=== PATIENT | male | born 1955 | race Caucasian/White ===

== ENCOUNTER 2016-11-10 08:21 | Emergency (ER) | payer BC ==
[2016-11-10 09:14] LABS: Hematocrit 38 % (42-52); Mean Corpuscular HGB Conc 34 g/dl (31-36); Mean Corpuscular Hemoglobin 30 pg (27-31); Mean Corpuscular Volume 88 fL (80-94); Mean Platelet Volume 9 um3 (7.4-10.4); Red Blood Count 4.33 10^6/ul (4.0-5.4); Red Cell Distribution Width 13 % (10.5-15); White Blood Count 5.5 10^3/ul (3.5-10.8)
[2016-11-10 09:30] LABS: Albumin 3.9 g/dL (3.2-5.2); BUN/Creatinine Ratio 18.5 (8-20); Calcium 9.1 mg/dL (8.6-10.3); EGFR African American 89.4 (>60); EGFR Non-African American 69.5 (>60); Globulin 2.9 g/dL (2-4); Magnesium 1.9 mg/dL (1.9-2.7); Potassium 3.8 mmol/L (3.5-5.0); Total Bilirubin 0.6 mg/dL (0.2-1.0); Total Protein 6.8 g/dL (6.4-8.9)
[2016-11-10 09:46] LABS: TSH (Thyroid Stimulating Horm) 6.34 mcIU/mL (0.34-5.60)
[2016-11-10] MEDS ORDERED: Iodixanol* (CONTRAST) 320 MG/ML 100 ML SDV IV ONE (10:53)
[2016-11-10] MEDS ORDERED: NS 0.9% 1000 ML* 1,000 ML IV ONE (12:29)
--- NOTE | 2016-11-10 13:11 | RAD ---
Indication: Ataxia, disequilibrium. CT of the brain was performed without IV contrast. The structures are midline. No midline shift is noted. The extraction spaces are unremarkable. There is no evidence of intracranial mass or hemorrhage. No other high or low density lesions are identified. Mastoid air cells and paranasal sinuses are otherwise unremarkable. There are no prior studies available for comparison. IMPRESSION: No intracranial mass or hemorrhage is noted.
--- NOTE | 2016-11-10 13:17 | RAD ---
Indication: Ataxia, disequilibrium. Contrast: Administered 79.9 ml of VISAPAQUE 320 mgi/ml CTA of the neck and head was performed after IV contrast administration. Coronal and sagittal reconstructed images were obtained. The origins of the great vessels demonstrates atherosclerosis at the origin of the left common carotid artery and the left subclavian artery. The right common carotid artery demonstrates calcific plaque in the mid right common carotid artery. Approximately 50% stenosis is noted in the mid right common carotid artery. Calcific plaque is also noted at the origin of the right internal carotid artery with suggestion of approximately 50% stenosis of the right internal carotid artery. The left common carotid artery demonstrates no evidence of calcific plaque. At the left carotid bifurcation there is plaque noted peripherally with less than 50% stenosis of left internal carotid artery. The cervical portion of the internal carotid arteries are grossly unremarkable. No evidence of carotid artery dissection is noted. The intracranial carotid arteries demonstrate atherosclerosis of the intracavernous portion of both internal carotid arteries. CTA of the head demonstrates anterior and middle cerebral arteries to be unremarkable with no branch occlusion. No aneurysmal dilatation is noted. The right vertebral artery demonstrates atherosclerosis. The basilar and posterior cerebral arteries are unremarkable with no evidence of branch occlusion or aneurysmal dilatation. IMPRESSION: Calcification and plaque is noted at the origin of the left common carotid artery. Approximately 50% calcific plaque and stenosis is noted in the mid right common carotid artery. Approximately 50% or greater stenosis is noted at the origin of the right internal carotid artery. Less than 50% stenosis of the origin of the left internal carotid artery noted. Atherosclerosis of the intracavernous portion of the internal carotid arteries is noted bilaterally.
--- NOTE | 2016-11-10 13:36 | RAD ---
Indication: Back pain. 3 views of lumbar spine demonstrates retrolisthesis of L4 on 5. The vertebral bodies otherwise appear normal in height. Disc spaces all well-preserved. IMPRESSION: There may be some minimal degenerative disc disease at L4-L5.
[2016-11-10 15:47] VITALS: BP 135/69
--- NOTE | 2016-11-10 20:41 | CONS ---
NEUROLOGY CONSULTATION: DATE OF CONSULT: 11/10/16 LOCATION: He is in the emergency room. REFERRING PHYSICIAN: Dr. Carroll. PRIMARY CARE PROVIDER: Jovan Patel MD CHIEF COMPLAINT: Dizziness. HISTORY OF PRESENT ILLNESS: Douglas Corado is a 61-year-old man who was in his usual state of health yesterday, when he was sitting on the edge of the bed at about 4 o'clock and sat improperly such that he was pressing on a sore spot and had quite a bit of pain near the sacrum. He felt "woozy" and unsteady and had to sit back down again. He had to lie back down at least for a little while. He got up to go to the bathroom and he felt "woozy" and somewhat unsteady. There was no sweating, but he did feel a bit nauseous, which he had been feeling earlier as well. No change in vision and he did not fall or lose awareness. He made it to the bathroom and sat there and felt a little bit better. He headed back to his bedroom and again felt somewhat dizzy and unsteady and lied down. After about 2 hours of lying down and sleepy, he got up at about 6 p.m. He again felt somewhat woozy and lightheaded. He stayed home that evening and he spoke to a friend who is a wheel buffer out of state and suggested that he might be dehydrated. He decided to stay home and he just tried to rest and eat and drink. He got up this morning and still did not feel quite right and so took the bus to the emergency room. While walking to the bus stop, he felt unsteady and woozy. There has not been any problems with double vision, slurred speech, numbness of the face or limbs, or incoordination of the limbs. There was no diaphoresis. He had diarrhea yesterday morning and last evening. He took his medications like he usually does. He is a diabetic and he lost his blood glucose monitor, so he has not checked it in a couple of weeks. He feels that he drinks fluids reasonably well. He had some M and M's after dinner last night. PAST MEDICAL HISTORY: Notable for insulin requiring diabetes for over 2 decades, he has dyslipidemia, peripheral neuropathy. He has a history of peripheral vascular disease with amputation of the right foot and a toe on the left foot. MEDICATIONS: At home consist of: 1. Insulin. 2. Actos. 3. Gabapentin 300 mg p.o. q.h.s. 4. Citalopram 30 mg p.o. q.a.m. 5. Precose 50 mg p.o. b.i.d. 6. Metformin 500 mg p.o. b.i.d. 7. Glyburide 10 mg p.o. b.i.d. 8. Simvastatin 10 mg p.o. q.p.m. ALLERGIES: He is allergic to SHELLFISH. REVIEW OF SYSTEMS: Notable for a fall on some ice, landing on his tailbone about a week prior to presentation. He did not lose consciousness. He has had pain in the small of his back and tailbone ever since. No recent change in weight. He had diarrhea yesterday. No fevers or sweats. He has had some episodes of shortness of breath yesterday when he felt lightheaded. No chest pain. No history of cardiac disease. No change in weight. He does not monitor his blood glucose and he is not sure what his A1c is. His primary care physician is Dr. Jovan Patel, who is retired and he has not seen his new primary care physician yet. He says he takes his medications very regularly. No problems with headaches. His sleep is erratic and he was up late the night before admission. He does work locally. PHYSICAL EXAM: He is overweight. Temperature 98.5 temporally, blood pressure supine is 130/90 going to 120/80 standing, checked by myself at the bedside with a manual cuff. Heart rate remains fairly regular in the 70s with occasional ventricular ectopic beats. Respiratory rate is 20, oxygen saturation is 94% on room air. Skin is warm and dry. Neck is supple. Oral mucosa is moist and atraumatic. There is some tenderness to palpation in the left paravertebral musculature, but no obvious sores or open skin. Neurologically, pupils react equally from 4.5 to 2.5 mm. Eye movements are normal. There is no nystagmus. Visual mcmahan are full to confrontation. Funduscopic exam is unremarkable bilaterally. There is no ptosis. Facial musculature is intact and symmetric bilaterally. Facial sensation to light touch and pin is intact and symmetric. Palate and tongue appear normal, tongue protrudes in the midline and palate rises symmetrically. There is no dysarthria. Hearing is intact. Motor exam reveals normal muscle tone and strength proximally and distally with absent right foot below the ankle. He is missing one toe in the left foot. There is atrophy of foot intrinsics and a little bit in hand intrinsics bilaterally. He has good strength proximally in the upper and lower extremities and no pronator drift. Finger to nose maneuver is normal. There is no action tremor or rest tremor. Past pointing maneuver is negative on the right. Reflexes are hypoactive, but present. Knee reflexes are trace. Standing, he may feel somewhat woozy and to the back. His blood pressure drops as described above, but not precipitously. He is alert and oriented and a good detailed historian. Memory is intact and language is fluent. He has good attention, concentration, adequate fund of knowledge. DIAGNOSTIC STUDIES/LAB DATA: Includes a CBC which is notable for a hemoglobin of 13 and is otherwise unremarkable. Chemistry is notable for glucose of 274 and a sodium of 132 and otherwise unremarkable. He has not had a urinalysis. EKG is reviewed and reveals sinus rhythm with a left axis deviation. He has a CT of the brain ordered and pending. IMPRESSION: He is probably orthostatic. He has significant vascular risk factors, but he really does not describe anything that clearly is suggestive of a vertebrobasilar insufficiency. He does have a little drop in blood pressure upon standing and feels woozy and his symptoms are orthostatic. I would recommend he be given some fluids. A CT of the brain is pending and unless it shows something unusual, I think I would treat him for his orthostatic hypotension. Dr. Carroll has also ordered a CT angiogram of the brain and we will see what that shows. If he has severe vertebrobasilar stenosis, then that will need to be addressed, but at this point, I would favor dehydration and orthostatic hypotension as the likely cause of his symptoms. [id number]/[facility] #: [id number] LAURA
--- NOTE | 2016-11-11 08:05 | ED ---
Sohail Lambert Adam, scribed for Tj Carroll MD on 11/10/16 at 0844 . Dizziness - HPI Summary HPI Summary: 61 year old male arrived to [facility] complaining of dizziness, lightheadedness, and difficulty walking since 16:00 yesterday. His symptoms have been constant over the past 10 days, but wax and wane in their severity. He describes his sensation as "hazy, swaying side to side." His symptoms were exacerbated with sudden movement after sitting down, and alleviated while holding onto a door handle/railing. He is also experiencing numbness in both feet, which is no different from baseline. He has a PMHx of IDDM, HLD. - History Of Current Complaint Chief Complaint: EDDizziness Stated Complaint: DIZZY/DIFF WALKING Time Seen by Provider: 11/10/16 08:41 Hx Obtained From: Patient Onset/Duration: Resolved - spontaneously Timing: Minutes Severity Initially: Moderate Severity Currently: Moderate Character: Lightheaded, Dizzy Aggravating Factor(s): Exertion Alleviating Factor(s): Rest Associated Signs And Symptoms: Positive: Unsteady Gait, Inability to Walk - swaying side to side - Risk Factors Cardiac Risk Factors: Diabetes, Elevated Lipids - Allergies/Home Medications Allergies/Adverse Reactions: Allergies Allergy/AdvReac Type Severity Reaction Status Date / Time Shellfish Allergy Allergy FACIAL Verified 12/20/14 13:43 EDEMA PMH/Surg Hx/FS Hx/Imm Hx Endocrine/Hematology History: Reports: Hx Diabetes Denies: Hx Anticoagulant Therapy, Hx Thyroid Disease Cardiovascular History: Denies: Hx Congestive Heart Failure, Hx Hypertension, Hx Pacemaker/ICD, Other Cardiovascular Problems/Disorders Respiratory History: Reports: Hx Seasonal Allergies, Hx Sleep Apnea Denies: Hx Chronic Obstructive Pulmonary Disease (COPD) GI History: Denies: Other GI Disorders History: Denies: Hx Dialysis, Hx Renal Disease Musculoskeletal History: Reports: Hx Arthritis - L FINGER, Other Musculoskeletal History - OSTEOMYELITIS RIGHT ANKLE AND FOOT Sensory History: Reports: Hx Cataracts - REBA, Hx Contacts or Glasses - GLASSES FOR DISTANCE Denies: Hx Hearing Aid Opthamlomology History: Reports: Hx Cataracts - REBA, Hx Contacts or Glasses - GLASSES FOR DISTANCE Neurological History: Denies: Hx Seizures, Other Neuro Impairments/Disorders Psychiatric History: Reports: Hx Anxiety - R/T SURGERY, Hx Depression Denies: Hx Panic Disorder, Hx Substance Abuse - Surgical History Surgery Procedure, Year, and Place: L knee surgery, tonsillectomy. LT 2nd toe surgery 2012 Hx Anesthesia Reactions: No Infectious Disease History: No Infectious Disease History: Denies: Traveled Outside the [place] in Last 30 Days - Family History Known Family History: Positive: Other - negative for malignant hypethermia, no adverse reaction to anesthesia - Social History Alcohol Use: None Substance Use Type: Reports: None Smoking Status (MU): Never Smoked Tobacco Have You Smoked in the Last Year: No Review of Systems Negative: Fever, Chills Negative: Erythema Negative: Sore Throat Negative: Chest Pain Negative: Shortness Of Breath, Cough Negative: Vomiting, Diarrhea, Nausea Negative: dysuria, hematuria Negative: Myalgia, Edema Negative: Rash Neurological: Other - "dizziness" Positive: Weakness All Other Systems Reviewed And Are Negative: Yes Physical Exam - Summary Physical Exam Summary: Constitutional: Well-developed, Well-nourished, Alert. (-) Distressed Skin: Warm, Dry HENT: Eyes: Conjunctiva normal Neck: Musculoskeletal ROM normal neck. (-) JVD, (-) Stridor, (-) Tracheal deviation Cardio: Rhythm regular, rate normal, Heart sounds normal; Intact distal pulses; The pedal pulses are 2+ and symmetric. Radial pulses are 2+ and symmetric. (-) Murmur Pulmonary/Chest wall: Effort normal. (-) Respiratory distress, (-) Wheezes, (-) Rales Abd: Soft. (-) Tenderness, (-) Distension, (-) Guarding, (-) Rebound Musculoskeletal: (-) Edema Lymph: (-) Cervical adenopathy Neuro: Alert, Oriented x3, Strength normal, Cranial nerves II-XII are grossly intact. (-) Dysmetria, (-) Nystagmus, (-) Ataxia by finger to nose testing, (-) Sensory deficit. Psych: Mood and affect Normal Vital Signs On Initial Exam: Initial Vitals Temp Pulse Resp BP Pulse Ox 98.5 F 45 16 152/78 99 11/10/16 08:23 11/10/16 08:23 11/10/16 08:23 11/10/16 08:23 11/10/16 08:23 Diagnostics - Vital Signs Vital Signs Temp Pulse Resp BP Pulse Ox 11/10/16 08:23 98.5 F 45 16 152/78 99 - Laboratory Lab Results: Lab Results 11/10/16 11/10/16 11/10/16 Range/Units 08:40 08:40 08:40 WBC 5.5 (3.5-10.8) 10^3/ul RBC 4.33 (4.0-5.4) 10^6/ul Hgb 13.0 L (14.0-18.0) g/dl Hct 38 L (42-52) % MCV 88 (80-94) fL MCH 30 (27-31) pg MCHC 34 (31-36) g/dl RDW 13 (10.5-15) % Plt Count 183 (150-450) 10^3/ul MPV 9 (7.4-10.4) um3 Neut % (Auto) 68.0 (38-83) % Lymph % (Auto) 21.1 L (25-47) % Day % (Auto) 8.4 (1-9) % Eos % (Auto) 1.8 (0-6) % Baso % (Auto) 0.7 (0-2) % Absolute Neuts (auto) 3.8 (1.5-7.7) 10^3/ul Absolute Lymphs (auto) 1.2 (1.0-4.8) 10^3/ul Absolute Monos (auto) 0.5 (0-0.8) 10^3/ul Absolute Eos (auto) 0.1 (0-0.6) 10^3/ul Absolute Basos (auto) 0 (0-0.2) 10^3/ul Absolute Nucleated RBC 0 10^3/ul Nucleated RBC % 0.1 Sodium 132 L (133-145) mmol/L Potassium 3.8 (3.5-5.0) mmol/L Chloride 100 L (101-111) mmol/L Carbon Dioxide 24 (22-32) mmol/L Anion Gap 8 (2-11) mmol/L BUN 20 (6-24) mg/dL Creatinine 1.08 (0.67-1.17) mg/dL Est GFR ( Amer) 89.4 (>60) Est GFR (Non-Af Amer) 69.5 (>60) BUN/Creatinine Ratio 18.5 (8-20) Glucose 274 H (70-100) mg/dL Lactic Acid 1.2 (0.5-2.0) mmol/L Calcium 9.1 (8.6-10.3) mg/dL Magnesium 1.9 (1.9-2.7) mg/dL Total Bilirubin 0.60 (0.2-1.0) mg/dL AST 14 (13-39) U/L ALT 14 (7-52) U/L Alkaline Phosphatase 55 (34-104) U/L Troponin I 0.00 (<0.04) ng/mL Total Protein 6.8 (6.4-8.9) g/dL Albumin 3.9 (3.2-5.2) g/dL Globulin 2.9 (2-4) g/dL Albumin/Globulin Ratio 1.3 (1-3) TSH 6.34 H (0.34-5.60) mcIU/mL Result Diagrams: 11/10/16 08:40 11/10/16 08:40 Lab Statement: Any lab studies that have been ordered have been reviewed, and results considered in the medical decision making process. - Radiology LUMBAR SPINE Radiology Interpretation Completed By: Radiologist - IMPRESSION: There may be some minimal degenerative disc disease at L4-L5. - CT Brain CT CT Interpretation Completed By: Radiologist - IMPRESSION: No intracranial mass or hemorrhage is noted. Head CTA CT Interpretation Completed By: Radiologist - IMPRESSION: Calcification and plaque is noted at the origin of the left common carotid artery. Approximately 50% calcific plaque and stenosis is noted in the mid right common carotid artery. Approximately 50% or greater stenosis is noted at the origin of the right internal carotid artery. Less than 50% stenosis of the origin of the left internal carotid artery noted. Atherosclerosis of the intracavernous portion of the internal carotid arteries is noted bilaterally. - EKG 08:28 Cardiac Rate: NL - 75 BPM EKG Rhythm: Sinus Rhythm Ectopy: None EKG Interpretation: No STEMI - Additional Comments Diagnostic Additional Comments: Troponin I - 0.00 Re-Evaluation - Re-Evaluation First Eval Re-Evaluation Time: 15:30 Change: Improved Comment: Patient able to ambulate around ED. No SOB, [place] very well walking. Dizzy Course/Dx - Diagnoses Provider Diagnoses: Dizziness - Provider Notifications Discussed Care Of Patient with: Dr. Ballard evaluated the patient and recommended discharge Discharge - Discharge Plan Condition: Stable Disposition: HOME Patient Education Materials: Dizziness (ED) Referrals: Jovan Patel MD [Primary Care Provider] - Additional Instructions: Follow up with Dr. Patel in 2 days. The documentation as recorded by the Sohail quinn Adam accurately reflects the service I personally performed and the decisions made by me, Tj Carroll MD.
== END 2016-11-10 15:45 | disposition home or self-care (01) ==
LOC: ED 08:21
DX: R42 Dizziness and giddiness (principal); R26.2 Difficulty in walking, not elsewhere classified; E11.51 Type 2 diabetes mellitus with diabetic peripheral angiopathy without gangrene; E78.5 Hyperlipidemia, unspecified; G62.9 Polyneuropathy, unspecified; Z89.431 Acquired absence of right foot; Z89.422 Acquired absence of other left toe(s); W00.0XXA Fall on same level due to ice and snow, initial encounter; Y92.9 Unspecified place or not applicable; Z79.4 Long term (current) use of insulin; M51.36 Other intervertebral disc degeneration, lumbar region
CPT/HCPCS: 36415; 70450; 70496; 70498; 72100; 80053; 83605; 83735; 84443; 84484; 85025; 93005; 99282; Q9967

== ENCOUNTER 2017-05-04 11:40 | Inpatient (IN) | payer BC ==
[~2017-05-04 11:40] MED LIST: Buffered Lidocaine 0.9% SYRIN* 5 ML/SYR SYRINGE INTRADERM ONE; Bupivacaine 0.5% SDV PF* 30 ML VIAL ONE; Famotidine IV* 10 MG/ML 2 ML (20 mg) IV ONE
[2017-05-04] MEDS ORDERED: ceFAZolin 2 GM PREMIX (*) 50 ML IVPB ONE (11:46)
[2017-05-04] MEDS ORDERED: Buffered Lidocaine 0.9% SYRIN* 5 ML/SYR SYRINGE ONE (11:46)
[2017-05-04] MEDS ORDERED: Famotidine IV* 10 MG/ML 2 ML (20 mg) ONE (11:46)
[2017-05-04] MEDS ORDERED: Insulin LISPRO* 1 UNITS UNIT SUBCUT ONE ×3 (12:10→14:13)
[2017-05-04] MEDS ORDERED: Lidocaine 2% PF* 10 ML AMP ONE (12:49)
[2017-05-04] MEDS ORDERED: Midazolam* 1 MG/ML 5 ML VIAL (5 MG) ONE (13:04)
[2017-05-04] MEDS ORDERED: fentaNYL* 50 MCG/ML 2 ML VIAL (100 MCG VIAL) ONE (13:04)
[2017-05-04] MEDS ORDERED: Propofol* 10 MG/ML 20 ML BTL IV PUSH ONE (13:28)
[2017-05-04] MEDS ORDERED: Lidocaine 2% PF * 5 ML VIAL ONE (13:28)
[2017-05-04] MEDS ORDERED: oxyCODONE/Acetamin 5/325 MG* TAB PO PRN ×2 (13:53→14:13)
[2017-05-04] MEDS ORDERED: PROCHLORPERAZINE INJ 5 MG/ML 2 ML VIAL IV PRN (13:53)
[2017-05-04] MEDS ORDERED: HYDROcodone/ACETAMIN 5-325 MG* 1 TAB PO PRN (13:53)
[2017-05-04] MEDS ORDERED: fentaNYL* 50 MCG/ML 2 ML VIAL (100 MCG VIAL) IV PRN (13:53)
[2017-05-04] MEDS ORDERED: Dextrose 50% Syringe 50 ML* 25 GM/50 ML SYRINGE IV PUSH PRN (14:12)
[2017-05-04] MEDS ORDERED: diPHENhydraMINE IV* 50 MG/ML 1 ml VIAL (BENADRYL) IV PRN (14:13)
[2017-05-04] MEDS ORDERED: Morphine INJ* 2 MG/ML 1 ML SYRINGE IV PRN (14:13)
[2017-05-04] MEDS ORDERED: Acetaminophen TAB* 325 MG PO PRN (14:20)
[2017-05-04] MEDS ORDERED: oxyCODONE/Acetamin 5/325 MG* TAB ONE (14:22)
[2017-05-04] MEDS ORDERED: Enoxaparin(*) 30 MG/0.3 ML SYR SUBCUT SCH (15:00)
[2017-05-04] MEDS ORDERED: Vancomycin(*) 0 MG in NS 0.9% 250 ML* 250 ML IVPB SCH (15:00)
[2017-05-04] MEDS ORDERED: Vancomycin per Pharmacy* NOTE FOLLOW UP PRN (16:13)
[2017-05-04] MEDS ORDERED: Vancomycin(*) 1,500 MG in NS 0.9% 250 ML* 250 ML IVPB ONE (17:00)
[2017-05-04] MEDS: ACARBOSE 25 MG PO SCH (17:59)
[2017-05-04] MEDS: Atorvastatin* 20 MG TAB PO SCH (18:00)
[2017-05-04 18:12] LABS: Hematocrit 38 % (42-52); Hemoglobin 12.9 g/dl (14.0-18.0)
[2017-05-04 18:27] LABS: EGFR African American 83.1 (>60); EGFR Non-African American 64.7 (>60)
[2017-05-04] MEDS: Docusate CAP* 100 MG PO SCH (19:28)
[2017-05-04] MEDS: Gabapentin CAP(*) 300 MG PO SCH (19:28)
[2017-05-04] MEDS: oxyCODONE/Acetamin 5/325 MG* TAB PO PRN ×2 (19:28→23:08)
[2017-05-04] MEDS ORDERED: traZODone TAB* 50 MG TAB PO PRN (21:00)
[2017-05-05] MEDS: Vancomycin(*) 1,000 MG in NS 0.9% 250 ML* 250 ML IVPB SCH ×3 (01:09→17:21)
--- NOTE | 2017-05-05 01:26 | OP ---
DATE OF OPERATION: 05/04/17 - ROOM #341 DATE OF : 55 SURGEON: Elian Washburn MD INTERNATIONAL NURSE: Sofy Cleveland PA-C ANESTHESIOLOGIST: Suad Hodges MD ANESTHESIA: MAC PRE-OP DIAGNOSIS: Recurrent breakdown, right transmetatarsal with plantar ulcer. POST-OP DIAGNOSIS: Recurrent breakdown ulcer, right transmetatarsal amputation. OPERATIVE PROCEDURE: Revision, right transmetatarsal amputation. DESCRIPTION OF PROCEDURE: The patient was taken to the operating room where a transverse incision was made through the previous incision opening of a dorsal plantar flap to expose the bridge of the proximal metatarsals. We used the microsagittal saw to recut these areas, making sure I beveled them smoothly on the plantar aspect. A three-layer irrigation was then performed on the wound itself with hemostasis obtained. I also ellipticized the plantar ulcer back to good fresh tissue. We closed the main flaps with 0 Vicryl sutures and 2-0 Surgipro for the skin and a Betadine dressing for the ulcer. A plaster splint was applied. [id number]/[facility] #: [id number] [facility]
[2017-05-05] MEDS: oxyCODONE/Acetamin 5/325 MG* TAB PO PRN ×2 (03:28→20:40)
[2017-05-05 06:47] LABS: BUN/Creatinine Ratio 15.7 (8-20); Calcium 8.8 mg/dL (8.6-10.3); EGFR African American 89.4 (>60); EGFR Non-African American 69.5 (>60); Potassium 4.4 mmol/L (3.5-5.0)
[2017-05-05] MEDS ORDERED: NS 0.9% 250 ML* 250 ML ONE (09:08)
[2017-05-05] MEDS: Citalopram TAB* 20 MG PO SCH (09:10)
[2017-05-05] MEDS: ACARBOSE 25 MG PO SCH ×3 (09:10→18:23)
[2017-05-05] MEDS: Docusate CAP* 100 MG PO SCH ×2 (09:11→20:40)
[2017-05-05] MEDS: Enoxaparin(*) 30 MG/0.3 ML SYR SUBCUT SCH (09:11)
[2017-05-05] MEDS ORDERED: Vancomycin Trough Check NOTE FOLLOW UP ONE (16:30)
[2017-05-05] MEDS ORDERED: Dextrose 50% Syringe 50 ML* 25 GM/50 ML SYRINGE IV PUSH PRN (16:47)
--- NOTE | 2017-05-05 16:57 | PN ---
Progress Note - Progress Note Date of Service: 05/05/17 SOAP: Subjective: POD #1 Right foot debridement. Pt states that he is doing well, has minimal pain. Able to ambulate well NWB with walker. Denies CP/SOB, f/c Objective: Vitals: Temp Pulse Resp BP Pulse Ox 98.3 F 82 16 137/65 95 05/05/17 15:39 05/05/17 15:39 05/05/17 15:39 05/05/17 15:39 05/05/17 15:39 Gen: A&Ox3, NAD at rest laying in bed RLE: Splint C/D/I. +f/e at knee Labs: Laboratory Results - last 24 hr 05/04/17 05/04/17 05/05/17 18:05 18:05 06:07 Hgb 12.9 L Hct 38 L Sodium 132 L Potassium 4.4 Chloride 101 Carbon Dioxide 26 Anion Gap 5 BUN 19 17 Creatinine 1.15 1.08 Est GFR ( Amer) 83.1 89.4 Est GFR (Non-Af Amer) 64.7 69.5 BUN/Creatinine Ratio 15.7 Glucose 320 H POC Glucose (mg/dL) Calcium 8.8 05/05/17 15:59 Hgb Hct Sodium Potassium Chloride Carbon Dioxide Anion Gap BUN Creatinine Est GFR ( Amer) Est GFR (Non-Af Amer) BUN/Creatinine Ratio Glucose POC Glucose (mg/dL) 382 H Calcium Assessment: POD #1 Right foot debridement Plan: Cont NWB RLE, PT/OT Awaiting ID consult for abx Probable d/c home tomorrow
[2017-05-05] MEDS: Insulin ISOPH/REG 70/30 (*) 1 UNITS UNIT SUBCUT SCH (17:20)
[2017-05-05] MEDS: Atorvastatin* 20 MG TAB PO SCH (17:22)
[2017-05-05] MEDS: Gabapentin CAP(*) 300 MG PO SCH (20:40)
--- NOTE | 2017-05-05 21:58 | CONS ---
CONSULTATION REPORT: DATE OF CONSULT: 05/05/17 REQUESTING PHYSICIAN: Dr. Washburn. CONSULTING SERVICE: Infectious Disease. REASON FOR CONSULT: Right foot ulceration. IMPRESSION: 1. Status post right transmetatarsal disarticulation in 2014 for osteomyelitis and diabetic ulcers and did well until recently he had a small cut, developed an ulcer on his plantar right foot. He had revision of the transmetatarsal amputation. He had been on Keflex leading up to the surgery. Gram stain at the time of procedure showed 3+ neutrophils, no organisms. The culture was negative for 24 hours. Pathology specimen was pending. The MRI leading up to the surgery did not show any evidence of osteomyelitis. There may in fact not be a deeper bone infection given a brief duration of his ulcer and at this point , we can plan to treat it as a soft tissue infection unless the pathology report comes back and shows osteomyelitis. 2. Diabetic neuropathy. RECOMMENDATIONS: Continue vancomycin, goal trough 10 to 15 while awaiting the pathology specimen while he is here in the hospital. If there is no osteomyelitis and his wound is progressing, then would plan to treat him with Bactrim double strength tablet twice daily for 2 weeks as an outpatient. HISTORY OF PRESENT ILLNESS: This is a 61-year-old diabetic who has had a transmetatarsal amputation of the right foot in 2014, which did well and then about 2 weeks ago, he developed a cut on the plantar surface of the foot, that kind of opened up and got a little bit worse over about 2 weeks. He had seen Dr. Washburn, who obtained an MRI that showed soft tissue swelling adjacent to the ulceration. There was no bone marrow edema. He had been on Keflex for a few days right up to surgery which was done yesterday and he has tolerated well. He has minimal pain today. He is eating and drinking fine. He has no diarrhea. He has been on vancomycin since yesterday. PAST MEDICAL HISTORY: 1. Insulin-dependent diabetes with neuropathy. 2. Right foot osteomyelitis, status post transmetatarsal amputation in 2014. 3. Depression. MEDICATIONS: 1. Acarbose. 2. Tylenol. 3. Lipitor. 4. Celexa. 5. Enoxaparin. 6. Famotidine. 7. Vancomycin 1 g IV every 8 hours. 8. Trazodone at bedtime. ALLERGIES: No known drug allergies. FAMILY HISTORY: No tuberculosis or recurrent infections. SOCIAL HISTORY: Lives in [place]. Works as a librarian helper. No travel. No injection drugs. REVIEW OF SYSTEMS: All negative to full review of systems except as noted above. PHYSICAL EXAM: Vital Signs: Temperature is 36.4, heart rate 70, respiratory rate 16, blood pressure 130/70, O2 sat 96% on room air. General: He is awake, not in distress. Neurological: He is oriented x3. Follows all commands. He has decreased sensation in the left foot. The right foot is in a cast and so I cannot test that. HEENT: There is no conjunctival hemorrhage. Oropharynx without lesions. Neck is supple without nuchal rigidity. Lymph Nodes: There are no cervical, supraclavicular, inguinal, or axillary, or epitrochlear lymphadenopathy. Heart: Regular rate and rhythm without rubs, murmurs, or gallops. Lungs: Clear to auscultation bilaterally. Abdomen: Soft, nontender , nondistended. There are bowel sounds present. Skin: There is no rash or splinter hemorrhages. Musculoskeletal: The right foot is casted. DIAGNOSTIC STUDIES/LAB DATA: The creatinine is 1.0. Hemoglobin 12. Please see impressions and recommendations as outlined above. Thank you for asking me to see Mr. Corado in consultation. [id number]/[facility] #: [id number] [place]UR[facility]
--- NOTE | 2017-05-05 22:57 | CONS ---
CC: Dr. Flores; Dr. Washburn * CONSULTATION REPORT: DATE OF CONSULT: 05/05/17 PRIMARY CARE PROVIDER: Dr. Flores. REQUESTING PHYSICIAN IN CONSULT: Dr. Washburn. REASON FOR CONSULT: Evaluation and management of comorbid medical problems. HISTORY OF PRESENT ILLNESS: Please refer to Dr. Washburn's H and P for further details. In short, Mr. Corado is a 61-year-old male patient with a longstanding history of diabetes, insulin dependent, type 2; history of osteomyelitis in the past; neuropathy; hyperlipidemia, who underwent a transmetatarsal amputation several years ago and unfortunately developed an ulcer on the plantar aspect of the medial stump, which he was applying Betadine with dry dressings, he was casted for a period of time to allow to help to heal. But despite the conservative management, it just kept getting worse. So, he developed a blister over the dorsal aspect of the left fifth toe and there was erythema around the area and because of this, it was felt that he would require revision , which he underwent yesterday. He is evaluated in the postoperative setting today. It has been noted that his sugars have been running in the 300's here and we were asked to evaluate in consult. He denies having any chest pain, he denies having any shortness of breath, he denies having any abdominal pain, says he is feeling well. He says normally his sugars are fairly well controlled when he is on his insulin 70/30. He denies having any pain in his foot, says the pain is well controlled, and denies any nausea or vomiting. But because of his medical complexity, the hospitalist service was asked to evaluate in consult. PAST MEDICAL HISTORY: Significant for: 1. Diabetes. 2. Osteomyelitis. 3. Neuropathy. 4. Hyperlipidemia. PAST SURGICAL HISTORY: 1. He has had a right transmetatarsal amputation. 2. He has had a revision of his amputation done yesterday. 3. Appendectomy. 4. Carpal tunnel release. FAMILY HISTORY: Mother had a history of diabetes and cancer. Father had a history of heart disease. SOCIAL HISTORY: He does not smoke, he does not drink. Surrogate decision maker is his friend, Gracie. MEDICATIONS: Home meds according to the list that was provided preoperatively include: 1. Metformin 500 mg p.o. b.i.d. 2. Glyburide 10 mg p.o. b.i.d. 3. Zocor 40 mg p.o. daily. 4. Actos 15 mg p.o. b.i.d. 5. Acarbose 50 mg p.o. b.i.d. 6. Tylenol 650 mg p.o. every 6 hours as needed. 7. Keflex 500 mg p.o. four times a day. 8. Celexa 30 mg p.o. daily. 9. Gabapentin 300 mg at bedtime. 10. Insulin 70/30, he takes 20 units in the morning and 35 units in the evening. ALLERGIES TO MEDICATIONS: Include SHELLFISH. REVIEW OF SYSTEMS: There is no documented fever. He denies having any significant weight change. No double vision. No ear discharge, no rhinorrhea. No sore throat, no thyroid enlargement. Denies having any chest pain. No orthopnea, nocturnal dyspnea. No abdominal pain. No nausea, no vomiting. No dysuria, no frequency. No loss of consciousness. No pruritus and no skin ulcerations. Review of 14 systems completed, all others negative. PHYSICAL EXAM: Vital Signs: Blood pressure 137/65 with a pulse of 82, respirations 16, O2 sat 95%, temperature 98.2. Generally at this time, Mr. Corado is a 61-year-old male patient, he is sitting in the hospital bed. He does not appear to be in any acute distress. He is awake and he is alert. HEENT: Head atraumatic. Eyes: Sclerae anicteric, not pale. Neck: Supple. Throat: Oral mucosa appears to be moist, no oropharyngeal erythema. Heart sounds: S1, S2. Regular rate and rhythm. No murmurs, rubs, or gallops. Lungs: Clear to auscultation. No wheezes, rales or rhonchi. Abdomen: Soft, flat, nontender, bowel sounds are present. Extremities: Pulses, again unable to be checked on the right lower extremity due to the fact that it is covered with an Palmer dressing, 2+ throughout, no peripheral edema. He is moving his extremities. Neurologically, he is awake, he is alert, he is oriented x3. He had no gross obvious focal deficits. His skin is intact with exception to the right lower extremity, there is an incision there that is covered with an Palmer dressing, no obvious drainage was noted. I did not take down the dressing as this is the surgical dressing. DIAGNOSTIC STUDIES/LAB DATA: His labs today revealed hemoglobin of 12.9, hematocrit of 38. His INR was 0.93. His sodium was 132, chloride 101, bicarb 26, BUN 17, creatinine 1.08, glucose of 320, calcium 8.8. He had a preoperative lower extremity MRI, which showed soft tissue defect in the lower aspect of the stump of the right foot with no evidence of adjacent bone marrow edema, mild adjacent muscular edema is noted. No drainable fluid collection is noted. Old medical records were reviewed. ASSESSMENT AND PLAN: Mr. Corado is a 61-year-old male patient coming in to the orthopedic services for a revision of a right transmetatarsal amputation and debridement of a ulcer wound. We were asked to evaluate in consult. Recommendations at this point are: 1. Revision of the transmetatarsal amputation. I will defer the management to Dr. Washburn and his team. They are going to continue vancomycin for the time being. We are awaiting pathology from the bone fragments taken from the revision. 2. Diabetes. Again, his sugars here have been in the 300's. I am going to put him on lispro scale. I am going to hold his p.o. agent, I will continue his Levemir 70/30 b.i.d., we will monitor for the time being. 3. Osteomyelitis. Again, not an active issue currently and this is ruled out with an MRI. We will await pathology report from the bones. 4. Neuropathy. Continue his gabapentin. 5. Hyperlipidemia. Continue his current medical regimen. 6. DVT prophylaxis. We will defer to the primary team. 7. Fluids, electrolytes, and nutrition. I would recommend a consistent carb diet. 8. Code status. He is a full code. TIME SPENT: On the consult was 60 minutes; greater than half that time was spent [id number] with the patient obtaining my history and physical, other half the time was spent going over the plan of care with the patient and implementing plan of care. I did discuss the plan of care with my attending, Dr. Shanks; she is in agreement. MADELYN GEE, ANGELICA [id number]/[facility] #: [id number] MTDD
[2017-05-06] MEDS: Vancomycin(*) 1,000 MG in NS 0.9% 250 ML* 250 ML IVPB SCH ×3 (01:02→17:22)
[2017-05-06] MEDS: oxyCODONE/Acetamin 5/325 MG* TAB PO PRN ×3 (01:05→17:25)
[2017-05-06 06:01] LABS: Mean Platelet Volume 8 um3 (7.4-10.4)
[2017-05-06] MEDS ORDERED: Insulin ISOPH/REG 70/30 (*) 1 UNITS UNIT SUBCUT SCH (08:00)
[2017-05-06] MEDS: Docusate CAP* 100 MG PO SCH ×2 (08:43→22:06)
[2017-05-06] MEDS: Citalopram TAB* 20 MG PO SCH (08:44)
[2017-05-06] MEDS: ACARBOSE 25 MG PO SCH ×2 (08:44→17:25)
[2017-05-06] MEDS: Enoxaparin(*) 30 MG/0.3 ML SYR SUBCUT SCH (08:45)
[2017-05-06] MEDS: Insulin LISPRO* 1 UNITS UNIT SUBCUT SCH ×4 (08:46→22:05)
--- NOTE | 2017-05-06 13:40 | PN ---
Subjective Date of Service: 05/06/17 Interval History: No new c/o. Mild pain R foot relieved by oxycodone/APAP. No bowel c/o. Appetite good. Objective Active Medications: Acarbose (Acarbose (Nf)) 50 mg PO 0800,1700 REPLACED BY [facility] PRN Reason: Protocol Last Admin: 05/06/17 08:44 Dose: 50 mg Acetaminophen (Tylenol Tab*) 650 mg PO Q6H PRN PRN Reason: PAIN Atorvastatin Calcium (Lipitor*) 20 mg PO QPM REPLACED BY [facility] Last Admin: 05/05/17 17:22 Dose: 20 mg Citalopram Hydrobromide (Celexa Tab*) 30 mg PO QAM REPLACED BY [facility] Last Admin: 05/06/17 08:44 Dose: 30 mg Dextrose (D50w Syringe 50 Ml*) 12.5 gm IV PUSH .FOR FS < 60 - SS PRN PRN Reason: FS < 60 Diphenhydramine HCl (Benadryl Iv*) 25 mg IV Q6H PRN PRN Reason: itching Docusate Sodium (Colace Cap*) 100 mg PO BID REPLACED BY [facility] Last Admin: 05/06/17 08:43 Dose: Not Given Enoxaparin Sodium (Lovenox(*)) 30 mg SUBCUT 0900 REPLACED BY [facility] Last Admin: 05/06/17 08:45 Dose: 30 mg Gabapentin (Neurontin Cap(*)) 300 mg PO BEDTIME REPLACED BY [facility] Last Admin: 05/05/17 20:40 Dose: 300 mg Lactated Ringer's (Lactated Ringers 1000 Ml Bag*) 1,000 mls @ 75 mls/hr IV PER RATE REPLACED BY [facility] Last Admin: 05/06/17 01:25 Dose: 75 mls/hr Vancomycin HCl 1,000 mg/ (Sodium Chloride) 250 mls @ 166.667 mls/hr IVPB Q8H REPLACED BY [facility] Last Admin: 05/06/17 08:43 Dose: 166.667 mls/hr Insulin Human Isoph/Insulin Regular (Humulin 70/30 (*)) 20 units SUBCUT 0800 REPLACED BY [facility] Last Admin: 05/06/17 08:46 Dose: 20 units Insulin Human Isoph/Insulin Regular (Humulin 70/30 (*)) 35 units SUBCUT 1700 REPLACED BY [facility] Last Admin: 05/05/17 17:20 Dose: 35 units Insulin Human Lispro (Humalog*) 0 units SUBCUT AC REBEKAH PRN Reason: Protocol Last Admin: 05/06/17 12:03 Dose: Not Given Morphine Sulfate (Morphine Inj (Syringe)*) 2 mg IV Q2H PRN PRN Reason: PAIN Oxycodone/Acetaminophen (Percocet 5/325 Tab*) 1 tab PO Q4H PRN PRN Reason: PAIN Oxycodone/Acetaminophen (Percocet 5/325 Tab*) 2 tab PO Q4H PRN PRN Reason: PAIN Last Admin: 05/06/17 05:50 Dose: 2 tab Pharmacy Consult (Vancomycin Per Pharmacy*) 1 note FOLLOW UP . PRN PRN Reason: PER PROTOCOL Trazodone HCl (Desyrel Tab*) 25 mg PO BEDTIME PRN PRN Reason: insomnia Vital Signs 05/05/17 05/05/17 05/05/17 15:39 16:00 19:30 Temperature 98.3 F 98.8 F Pulse Rate 82 78 Respiratory 16 16 Rate Blood Pressure 137/65 139/62 (mmHg) O2 Sat by Pulse 95 95 95 Oximetry 05/05/17 05/05/17 05/05/17 19:56 20:40 22:40 Temperature Pulse Rate Respiratory 17 17 17 Rate Blood Pressure (mmHg) O2 Sat by Pulse Oximetry 05/05/17 05/06/17 05/06/17 23:39 01:05 03:05 Temperature 98.1 F Pulse Rate 69 Respiratory 16 16 16 Rate Blood Pressure 120/46 (mmHg) O2 Sat by Pulse 98 Oximetry 05/06/17 05/06/17 05/06/17 03:31 05:50 07:25 Temperature 97.8 F Pulse Rate 72 Respiratory 16 16 16 Rate Blood Pressure 128/53 (mmHg) O2 Sat by Pulse 97 Oximetry 05/06/17 05/06/17 05/06/17 07:44 08:00 11:42 Temperature 98.1 F 98.5 F Pulse Rate 67 65 Respiratory 16 16 16 Rate Blood Pressure 116/54 114/52 (mmHg) O2 Sat by Pulse 94 94 99 Oximetry Oxygen Devices in Use Now: None Appearance: Supine in bed, alert. In good spirits. Looks comfortable. Eyes: No Scleral Icterus Ears/Nose/Mouth/Throat: Clear Oropharnyx, Mucous Membranes Moist Neck: NL Appearance and Movements; NL JVP, No Thyroid Enlargement, Masses Respiratory: Symmetrical Chest Expansion and Respiratory Effort, Clear to Auscultation, Clear to Percussion Cardiovascular: NL Sounds; No Murmurs; No JVD, RRR, No Edema, - Extremities: No Edema, No Clubbing, Cyanosis, - - R forefoot amputation. R foot bandaged with elastic wrap. Skin: No Rash or Ulcers, No Nodules or Sclerosis, - Neurological: Alert and Oriented x 3, NL Sensation Result Diagrams: 05/06/17 05:50 05/05/17 06:07 Microbiology and Other Data: Microbiology 05/04/17 13:36 Anaerobic Culture - Preliminary Wound - Other No Growth Day 1 05/04/17 13:36 Gram Stain - Final Foot Right Wound Culture - Final No Growth Day 2 Assess/Plan/Problems-Billing Assessment: - Patient Problems (1) Acute osteomyelitis of phalanx of right foot Current Visit: No Status: Acute Priority: High Onset Date: 09/25/14 Code (s): M86.171 - OTHER ACUTE OSTEOMYELITIS, RIGHT ANKLE AND FOOT SNOMED Code(s) : 378032129 Comment: CBC, CRP 05/07. (2) Diabetes Current Visit: Yes Status: Acute Code(s): E11.9 - TYPE 2 DIABETES MELLITUS WITHOUT COMPLICATIONS SNOMED Code(s): 44447958 Comment: Continue home dose insulin, glyburide, acarbose. Lispor by SS achs. Resume pioglitazone and metformin on discharge.
--- NOTE | 2017-05-06 16:19 | PN ---
Progress Note - Progress Note Date of Service: 05/06/17 SOAP: Subjective: POD #2 Right foot debridement. States that he is doing well, feels like he is ambulating ok however PT is concerned about safety regarding ambulation on stairs. Denies CP/SOB Objective: Vitals: Temp Pulse Resp BP Pulse Ox 98.5 F 65 16 114/52 99 05/06/17 11:42 05/06/17 11:42 05/06/17 11:42 05/06/17 11:42 05/06/17 15:51 Gen: A&Ox3, NAD at rest sitting in chair RLE: Splint C/D/I, +f/e at knee Labs: Microbiology 05/04/17 13:36 Wound - Other Anaerobic Culture - Preliminary No Growth Day 1 05/04/17 13:36 Foot Right Gram Stain - Final 05/04/17 13:36 Foot Right Wound Culture - Final No Growth Day 2 Assessment: POD #2 right foot debridement Plan: Cont NWB RLE. Cont PT/OT for safe ambulation. Consider SNF if no improvement over next day or two Appreciate ID recs for abx
[2017-05-06] MEDS: Insulin ISOPH/REG 70/30 (*) 1 UNITS UNIT SUBCUT SCH (17:21)
[2017-05-06] MEDS: Atorvastatin* 20 MG TAB PO SCH (17:22)
[2017-05-06] MEDS: Gabapentin CAP(*) 300 MG PO SCH (22:06)
[2017-05-07] MEDS: Vancomycin(*) 1,000 MG in NS 0.9% 250 ML* 250 ML IVPB SCH ×2 (01:12→08:36)
[2017-05-07 06:27] LABS: Hematocrit 34 % (42-52); Hemoglobin 11.9 g/dl (14.0-18.0); Mean Corpuscular HGB Conc 35 g/dl (31-36); Mean Corpuscular Hemoglobin 31 pg (27-31); Mean Corpuscular Volume 88 fL (80-94); Mean Platelet Volume 8 um3 (7.4-10.4); Red Blood Count 3.91 10^6/ul (4.0-5.4); Red Cell Distribution Width 13 % (10.5-15)
[2017-05-07 06:42] LABS: BUN/Creatinine Ratio 13.1 (8-20); C Reactive Protein 97.78 mg/L (< 5.00); Calcium 8.8 mg/dL (8.6-10.3); EGFR African American 98.8 (>60); EGFR Non-African American 76.9 (>60)
[2017-05-07 06:56] LABS: TSH (Thyroid Stimulating Horm) 2.53 mcIU/mL (0.34-5.60)
[2017-05-07] MEDS ORDERED: Insulin ISOPH/REG 70/30 (*) 1 UNITS UNIT SUBCUT SCH ×2 (07:27→08:00)
[2017-05-07] MEDS: Insulin LISPRO* 1 UNITS UNIT SUBCUT SCH ×2 (07:47→12:25)
[2017-05-07] MEDS: ACARBOSE 25 MG PO SCH (08:34)
[2017-05-07] MEDS: Citalopram TAB* 20 MG PO SCH (08:34)
[2017-05-07] MEDS: Enoxaparin(*) 30 MG/0.3 ML SYR SUBCUT SCH (08:35)
[2017-05-07] MEDS: Docusate CAP* 100 MG PO SCH (08:36)
--- NOTE | 2017-05-07 10:33 | PN ---
Progress Note - Progress Note Date of Service: 05/07/17 SOAP: Subjective: resting comfortably in bed with minimal complaints of pain Objective: Vital Signs Temp Pulse Resp BP Pulse Ox 98.1 F 75 18 151/65 100 05/07/17 07:52 05/07/17 07:52 05/07/17 08:00 05/07/17 07:52 05/07/17 08:00 Laboratory Last Values WBC 6.0 10^3/ul (3.5-10.8) 05/07/17 06:12 RBC 3.91 10^6/ul (4.0-5.4) L 05/07/17 06:12 Hgb 11.9 g/dl (14.0-18.0) L 05/07/17 06:12 Hct 34 % (42-52) L 05/07/17 06:12 MCV 88 fL (80-94) 05/07/17 06:12 MCH 31 pg (27-31) 05/07/17 06:12 MCHC 35 g/dl (31-36) 05/07/17 06:12 RDW 13 % (10.5-15) 05/07/17 06:12 Plt Count 227 10^3/ul (150-450) 05/07/17 06:12 MPV 8 um3 (7.4-10.4) 05/07/17 06:12 Neut % (Auto) 68.2 % (38-83) 05/07/17 06:12 Lymph % (Auto) 20.1 % (25-47) L 05/07/17 06:12 [place] % (Auto) 9.1 % (1-9) H 05/07/17 06:12 Eos % (Auto) 2.2 % (0-6) 05/07/17 06:12 Baso % (Auto) 0.4 % (0-2) 05/07/17 06:12 Absolute Neuts (auto) 4.1 10^3/ul (1.5-7.7) 05/07/17 06:12 Absolute Lymphs (auto) 1.2 10^3/ul (1.0-4.8) 05/07/17 06:12 Absolute Monos (auto) 0.5 10^3/ul (0-0.8) 05/07/17 06:12 Absolute Eos (auto) 0.1 10^3/ul (0-0.6) 05/07/17 06:12 Absolute Basos (auto) 0 10^3/ul (0-0.2) 05/07/17 06:12 Absolute Nucleated RBC 0 10^3/ul 05/07/17 06:12 Nucleated RBC % 0.1 05/07/17 06:12 INR (Anticoag Therapy) 0.93 (0.89-1.11) 05/04/17 11:55 Sodium 137 mmol/L (133-145) 05/07/17 06:12 Potassium 4.0 mmol/L (3.5-5.0) 05/07/17 06:12 Chloride 104 mmol/L (101-111) 05/07/17 06:12 Carbon Dioxide 29 mmol/L (22-32) 05/07/17 06:12 Anion Gap 4 mmol/L (2-11) 05/07/17 06:12 BUN 13 mg/dL (6-24) 05/07/17 06:12 Creatinine 0.99 mg/dL (0.67-1.17) 05/07/17 06:12 Est GFR ( Amer) 98.8 (>60) 05/07/17 06:12 Est GFR (Non-Af Amer) 76.9 (>60) 05/07/17 06:12 BUN/Creatinine Ratio 13.1 (8-20) 05/07/17 06:12 Glucose 118 mg/dL (70-100) H 05/07/17 06:12 POC Glucose (mg/dL) 130 mg/dL (70-100) H 05/07/17 07:46 Calcium 8.8 mg/dL (8.6-10.3) 05/07/17 06:12 C-Reactive Protein 97.78 mg/L (< 5.00) H 05/07/17 06:12 TSH 2.53 mcIU/mL (0.34-5.60) 05/07/17 06:12 Vancomycin Trough 12.8 mcg/mL 05/05/17 16:30 incision: c/d/i PE:NVI Assessment: POD#3 right foot debridment Plan: 1) Lovenox for DVT prophylaxis 2) PT/OT- NWB RLE 3) ID following; awaiting pathology results 4) D/C dispo- possibly home today or tomorrow
--- NOTE | 2017-05-07 10:56 | PN ---
Progress Note - Progress Note Date of Service: 05/07/17 SOAP: Subjective: CC: right foot ulcer HPI: 61 yo diabetic with past R TMA and recurrent wound at amp site, admitted for I&D, culture negative. Feels well, no fever, rash, diarrhea. Objective: [] Vital Signs Temp 36.7 C 05/07/17 07:52 Pulse 75 05/07/17 07:52 Resp 18 05/07/17 08:00 BP 151/65 05/07/17 07:52 Pulse Ox 100 05/07/17 08:00 Intake & Output 05/06/17 05/07/17 05/07/17 18:59 06:59 18:59 Intake Total 1575 1169 240 Output Total 850 1100 500 Balance 725 69 -260 Intake: IV Fluids 855 ABX - VANCOMYCIN 285 LR 570 IVPB 649 LR 649 Oral 720 520 240 Output: Urine 850 1100 500 Other: # Bowel Movements 0 Gen:Awake, no distress HEENT:PERRL, MMM Neck:supple Heart:RRR no murmur LUngs:CTA BL Abd:+BS NTND soft Skin: no rash MSK: R foot casted Laboratory Results - last 24 hr 05/06/17 05/06/17 05/06/17 12:00 17:10 22:02 WBC RBC Hgb Hct MCV MCH MCHC RDW Plt Count MPV Neut % (Auto) Lymph % (Auto) [place] % (Auto) Eos % (Auto) Baso % (Auto) Absolute Neuts (auto) Absolute Lymphs (auto) Absolute Monos (auto) Absolute Eos (auto) Absolute Basos (auto) Absolute Nucleated RBC Nucleated RBC % Sodium Potassium Chloride Carbon Dioxide Anion Gap BUN Creatinine Est GFR ( Amer) Est GFR (Non-Af Amer) BUN/Creatinine Ratio Glucose POC Glucose (mg/dL) 94 229 H 85 Calcium C-Reactive Protein TSH 05/07/17 05/07/17 05/07/17 06:12 06:12 07:46 WBC 6.0 RBC 3.91 L Hgb 11.9 L Hct 34 L MCV 88 MCH 31 MCHC 35 RDW 13 Plt Count 227 MPV 8 Neut % (Auto) 68.2 Lymph % (Auto) 20.1 L [place] % (Auto) 9.1 H Eos % (Auto) 2.2 Baso % (Auto) 0.4 Absolute Neuts (auto) 4.1 Absolute Lymphs (auto) 1.2 Absolute Monos (auto) 0.5 Absolute Eos (auto) 0.1 Absolute Basos (auto) 0 Absolute Nucleated RBC 0 Nucleated RBC % 0.1 Sodium 137 Potassium 4.0 Chloride 104 Carbon Dioxide 29 Anion Gap 4 BUN 13 Creatinine 0.99 Est GFR ( Amer) 98.8 Est GFR (Non-Af Amer) 76.9 BUN/Creatinine Ratio 13.1 Glucose 118 H POC Glucose (mg/dL) 130 H Calcium 8.8 C-Reactive Protein 97.78 H TSH 2.53 Microbiology 05/04/17 13:36 Anaerobic Culture - Preliminary Wound - Other No Growth Day 2 05/04/17 13:36 Gram Stain - Final Foot Right Wound Culture - Final No Growth Day 2 Assessment: 1. R foot chronic non pressure ulcer, s/p I&D; pathology pending 2. diabetes with neuropathy 3. hx R TMA Plan: 1. bactrim DS tab PO BID x14 days while awaiting pathology report, had aggressive debridement so I think PO antibiotics are reasonable, duration may need to be changed pending path report, fu with me 2 weeks, my office will call him. Discussed with Ruthann PATEL
[2017-05-07 12:30] VITALS: BP 128/68
--- NOTE | 2017-05-08 04:07 | DS ---
DISCHARGE SUMMARY: DATE OF ADMISSION: 05/04/17 DATE OF DISCHARGE: 05/07/17 SURGEON: Dr. Elian Washburn * (DICTATED BY AMANDA ENRIQUE) PRINCIPAL DIAGNOSIS: Recurrent breakdown, right transmetatarsal with plantar ulcer. DISCHARGE DIAGNOSIS: Recurrent breakdown, right transmetatarsal with plantar ulcer. HOSPITAL COURSE: Mr. Corado is a 61-year-old gentleman, who underwent revision right transmetatarsal amputation on 05/04/17. He tolerated the procedure well with no complications. Cultures were taken at the time of the surgery, which were negative. Postop day 2, his H and H were 11.[address] Simpson was consulted for antibiotic recommendations and at the time of discharge, on , he was afebrile. He was ambulating well with the aid of a walker. He was discharged home in stable condition. DISCHARGE MEDICATIONS: 1. Aspirin 325 once daily. 2. Bactrim DS twice daily for 2 weeks. 3. Simvastatin. 4. NovoLog. 5. Gabapentin. 6. Metformin. 7. Glyburide. 8. Actos. 9. Lisinopril. PHYSICAL EXAM UPON DISCHARGE: He is afebrile. His vital signs are stable. He is overall neurovascularly intact. The splint was clean, dry, and intact. He is ambulating well with the aid of a walker. DISCHARGE INSTRUCTIONS: He was discharged home. He was asked to keep the splint dry and intact until his postop appointment with Dr. Washburn. He will follow up with Dr. Washburn next week and will make an appointment with Dr. Simpson. Dr. Simpson has recommended Bactrim DS twice daily for 2 weeks. That medication was sent to his pharmacy. We have also recommended aspirin 325 daily for DVT prophylaxis. He is nonweightbearing in the right lower extremity. He will call our office with any questions or concerns. Otherwise, we will see him next week for a followup visit with Dr. Washburn. AMANDA ENRIQUE [id number]/[facility] #: [id number] MTDD
== END 2017-05-07 13:30 | disposition home or self-care (01) | DRG 314 ==
LOC: AA 11:40 → SSU 15:49
PROVIDERS: ADMIT Orthopaedic Surgery; ATTEND Orthopaedic Surgery
PROC: 0HBMXZZ Excision of Right Foot Skin, External Approach (ICD-10-PCS; 2017-05-04)
PROC: 0QBN0ZZ Excision of Right Metatarsal, Open Approach (ICD-10-PCS; principal; 2017-05-04 13:00)
DX: E11.69 Type 2 diabetes mellitus with other specified complication (principal); L97.419 Non-pressure chronic ulcer of right heel and midfoot with unspecified severity; M86.171 Other acute osteomyelitis, right ankle and foot; E11.621 Type 2 diabetes mellitus with foot ulcer; E11.40 Type 2 diabetes mellitus with diabetic neuropathy, unspecified; M86.671 Other chronic osteomyelitis, right ankle and foot; T87.89 Other complications of amputation stump; E78.5 Hyperlipidemia, unspecified; F32.9 Major depressive disorder, single episode, unspecified; Y83.5 Amputation of limb(s) as the cause of abnormal reaction of the patient, or of later complication, without mention of misadventure at the time of the procedure; L97.529 Non-pressure chronic ulcer of other part of left foot with unspecified severity; Z82.49 Family history of ischemic heart disease and other diseases of the circulatory system; Z80.9 Family history of malignant neoplasm, unspecified; Z83.3 Family history of diabetes mellitus; Z91.013 Allergy to seafood; Y92.9 Unspecified place or not applicable; Z79.82 Long term (current) use of aspirin; Z79.4 Long term (current) use of insulin
CPT/HCPCS: 36415; 80048; 80202; 82565; 84443; 84520; 85014; 85018; 85025; 85049; 85610; 86140; 87070; 87073; 87205; 88304; 88311; A9270-GY; J0690; J1650; J2001; J2250; J2704; J3010; J3370

== ENCOUNTER 2024-03-23 07:36 | Observation (INO) ==
[2024-03-23] MEDS: Cefepime 1 GM in Dextrose 1 GM/50 ML BAG IV ONE (12:35)
[2024-03-23 12:36] LABS: ABS Basophils 0.1 10^3/uL (0.0-0.1); ABS Eosinophils 0.4 10^3/uL (0.0-0.5); ABS Lymphocytes 1.5 10^3/uL (1.0-4.8); ABS Monocytes 0.6 10^3/uL (0.0-1.1); ABS Neutrophils 4.2 10^3/uL (1.5-7.6); Eosinophil % 5.8 %; Hematocrit 35.8 % (38-53); Hemoglobin 12.2 g/dL (13.2-16.3); Lymphocyte % 21.9 %; Mean Corpuscular Hemoglobin 30.3 pg (27-33); Mean Corpuscular Hgb Conc 34.2 g/dL (31-36); Mean Corpuscular Volume 88.7 fL (80-97); Mean Platelet Volume 8.2 fL (7.5-11.2); Platelet Count 227 10^3/uL (150-450); Red Blood Count 4.04 10^6/uL (4.06-5.63); Red Cell Distribution Width 13.2 % (12-17); White Blood Count 6.7 10^3/uL (3.6-10.2)
[2024-03-23] MEDS: DOXYcycline 100 MG in NS 0.9% 250 ml 250 ML IVPB ONE (13:05)
[2024-03-23 14:07] LABS: Erythrocyte Sed Rate 43 mm/Hr (0-19)
[2024-03-23 14:36] LABS: CRP High Sensitivity 31.13 mg/L (<2.00); Calcium 9.2 mg/dL (8.6-10.3); Creatinine, Serum 1.16 mg/dL (0.67-1.17); HDL Cholesterol 45.9 mg/dL; Potassium 4.5 mmol/L (3.5-5.0); eGFR CKD-EPI 68.6 (>60)
[2024-03-23] MEDS ORDERED: Dextrose 50% Syringe 50 ml 25 GM/50 ML SYRINGE IV PUSH PRN (14:47)
[2024-03-23] MEDS ORDERED: Zosyn per Pharmacy NOTE FOLLOW UP SCH (15:00)
[2024-03-23] MEDS: Vancomycin 1,500 MG in NS 0.9% 250 ml 250 ML IVPB ONE (17:01)
[2024-03-23] MEDS: Enoxaparin 40 MG/0.4 ML SYR SUBCUT SCH (17:01)
[2024-03-23] MEDS ORDERED: Vancomycin per Pharmacy 1 EA NOTE FOLLOW UP PRN (18:50)
[2024-03-23] MEDS: Piperacillin/Tazobac 3.375 BAG 3.375 GM/100 ML BAG IV ONE (20:46)
[2024-03-23] MEDS: Insulin GLARGINE 100 un/ml 10 ml VIAL SUBCUT SCH (20:48)
[2024-03-24] MEDS: ZOSYN 3.375 GM Q8H per EXTENDED INFUSION IV SCH ×2 (01:36→21:44)
[2024-03-24] MEDS: Vancomycin 1000 MG in NS 0.9% 250 ML IVPB SCH (06:07)
[2024-03-24 06:58] LABS: ABS Basophils 0.1 10^3/uL (0.0-0.1); ABS Eosinophils 0.4 10^3/uL (0.0-0.5); ABS Lymphocytes 1.4 10^3/uL (1.0-4.8); ABS Monocytes 0.5 10^3/uL (0.0-1.1); Eosinophil % 7.8 %; Hematocrit 34.7 % (38-53); Hemoglobin 12.2 g/dL (13.2-16.3); Lymphocyte % 26.7 %; Mean Corpuscular Hemoglobin 30.9 pg (27-33); Mean Corpuscular Hgb Conc 35.2 g/dL (31-36); Mean Platelet Volume 8.4 fL (7.5-11.2); Nucleated Red Blood Cells % 0.1 %/100WBC (0.0-0.8); Platelet Count 216 10^3/uL (150-450); Red Blood Count 3.95 10^6/uL (4.06-5.63); Red Cell Distribution Width 13.2 % (12-17); White Blood Count 5.4 10^3/uL (3.6-10.2)
[2024-03-24 07:25] LABS: Calcium 8.7 mg/dL (8.6-10.3); Creatinine, Serum 1.14 mg/dL (0.67-1.17); Potassium 4.2 mmol/L (3.5-5.0); eGFR CKD-EPI 70.1 (>60)
[2024-03-24 08:18] LABS: C Reactive Protein 24.35 mg/L (<8.01)
[2024-03-24] MEDS ORDERED: Vancomycin 1,500 MG in NS 0.9% 250 ml 250 ML IVPB SCH (10:48)
[2024-03-24] MEDS: Enoxaparin 40 MG/0.4 ML SYR SUBCUT SCH (16:57)
[2024-03-25] MEDS: Vancomycin 1000 MG in NS 0.9% 250 ML IVPB SCH (05:37)
[2024-03-25 06:03] LABS: Calcium 8.6 mg/dL (8.6-10.3); Creatinine, Serum 1.1 mg/dL (0.67-1.17); Magnesium 1.6 mg/dL (1.9-2.7); Potassium 4.2 mmol/L (3.5-5.0); eGFR CKD-EPI 73.1 (>60)
[2024-03-25 06:21] LABS: ABS Basophils 0.1 10^3/uL (0.0-0.1); ABS Eosinophils 0.4 10^3/uL (0.0-0.5); ABS Lymphocytes 1.5 10^3/uL (1.0-4.8); ABS Monocytes 0.5 10^3/uL (0.0-1.1); ABS Neutrophils 3.1 10^3/uL (1.5-7.6); Eosinophil % 6.7 %; Hematocrit 36.4 % (38-53); Hemoglobin 12.5 g/dL (13.2-16.3); Lymphocyte % 27.4 %; Mean Corpuscular Hgb Conc 34.3 g/dL (31-36); Mean Corpuscular Volume 87.5 fL (80-97); Mean Platelet Volume 8.6 fL (7.5-11.2); Nucleated Red Blood Cells % 0.1 %/100WBC (0.0-0.8); Platelet Count 244 10^3/uL (150-450); Red Blood Count 4.16 10^6/uL (4.06-5.63); White Blood Count 5.5 10^3/uL (3.6-10.2)
[2024-03-25] MEDS: Magnesium Sulfate 2 gm BAG 2 GM/50 ML BAG IVPB ONE (09:54)
[2024-03-25] MEDS: ZOSYN 3.375 GM Q8H per EXTENDED INFUSION IV SCH (10:05)
[2024-03-25] MEDS: Magnesium Sulfate IV 1GM/100ML 1 GM/100 ML BAG IV ONE (12:07)
[2024-03-25 14:01] VITALS: BP 151/62
[2024-03-25] MEDS ORDERED: Vancomycin Trough Check NOTE FOLLOW UP ONE (17:00)
== END 2024-03-25 15:40 | disposition home or self-care (01) ==
LOC: ED 07:36 → EDHOLD 07:36 → MEDTELE 15:47 → SSU 03-24 00:55
PROVIDERS: ADMIT Internal Medicine; ATTEND Internal Medicine